=== PATIENT | female | born 2005 | race Caucasian/White ===

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

== ENCOUNTER → 2025-03-27 | Outpatient (CLI) | payer OTHER | LOC: LAB 15:54 → LAB SHORT 15:54 | DX: N39.0 Urinary tract infection, site not specified (principal) | CPT/HCPCS: 87077; 87086; 87186 ==

== ENCOUNTER → 2025-05-24 | Outpatient (CLI) | payer OTHER ==
[2025-05-24 16:27] LABS: BASOPHILS ABSOLUTE AUTO 0.01 K/mm3 (0.00-0.23); BASOPHILS PERCENT AUTO 0 % (0-2); EOSINOPHILS ABSOLUTE AUTO 0.10 K/mm3 (0.00-0.68); EOSINOPHILS PERCENT AUTO 2 % (0-6); Hematocrit 36.6 % (33.0-51.0); Hemoglobin 12.4 g/dL (11.5-16.0); IMMATURE GRAN ABSOLUTE AUTO 0.02 K/mm3 (0.00-0.10); IMMATURE GRAN PERCENT AUTO 0 % (0-1); LYMPHOCYTES ABSOLUTE AUTO 1.55 K/mm3 (0.84-5.20); LYMPHOCYTES PERCENT AUTO 26 % (21-46); MONOCYTES ABSOLUTE AUTO 0.39 K/mm3 (0.16-1.47); MONOCYTES PERCENT AUTO 7 % (4-13); Mean Corpuscular HGB Conc 33.9 g/dL (31.5-36.5); Mean Corpuscular Volume 93 fL (80-100); NEUTROPHILS ABSOLUTE AUTO 3.94 K/mm3 (1.96-9.15); NEUTROPHILS PERCENT AUTO 66 % (41-73); NRBC ABSOLUTE 0.00 K/mm3 (0.00-0.02); NRBC Auto 0.0 /100 WBC (0.0-0.2); Platelet Count 240 K/mm3 (150-400); RDW Coefficient Variation 11.9 % (11.7-14.2); RDW Standard Deviation 40.4 fL (35.1-46.3)
[2025-05-24 19:49] LABS: Alanine Aminotransfer (ALT/SGP 27 U/L (12-78); Albumin, Blood 3.6 g/dL (3.4-5.0); Albumin/Globulin Ratio 1.1 (0.8-1.8); Anion Gap 7 mmol/L (3-11); Aspartate Aminotrans (AST/SGOT 16 U/L (12-37); Bilirubin, Total 0.3 mg/dL (0.1-1.0); Blood Urea Nitrogen 7 mg/dL (8-24); CHOL/HDL RATIO 2.6; CO2, Blood 26 mmol/L (21-32); Calcium, Blood 8.7 mg/dL (8.5-10.1); Chloride, Blood 110 mmol/L (98-108); Cholesterol 109 mg/dL (50-200); Creatinine, Blood 0.75 mg/dL (0.40-1.00); Globulin, Blood 3.2 g/dL (2.2-4.0); Glucose, Blood 90 mg/dL (70-99); HDL Cholesterol 42 mg/dL (>39); LDL/HDL RATIO 1.3; Low Density Lipoprotein Chol 55 mg/dL (0-110); Potassium, Blood 4.0 mmol/L (3.5-5.5); Sodium, Blood 139 mmol/L (136-145); Thyroid Stimulating Hormone 1.680 uIU/mL (0.360-4.800); Total Protein, Blood 6.8 g/dL (6.4-8.2); Triglycerides 59 mg/dL (30-140); Very Low Density Lipoprot Chol 11 mg/dL (6-28)
== END ==
LOC: LAB SHORT 09:17 → LAB 09:17
PROVIDERS: Physician Assistant
DX: Z51.81 Encounter for therapeutic drug level monitoring (principal); Z79.899 Other long term (current) drug therapy
CPT/HCPCS: 80053; 80061; 82306; 83036; 84443; 85025

== ENCOUNTER 2025-08-02 22:31 | Emergency (ER) | payer OTHER ==
[~2025-08-02] VITALS: Ht 157.5 cm; Wt 81.7 kg
[2025-08-02 22:35] VITALS: BP 122/75
[2025-08-02 23:25] LABS: Influenza A, PCR NEGATIVE (NEGATIVE); Influenza B, PCR NEGATIVE (NEGATIVE); Resp Syncytial Virus, PCR NEGATIVE (NEGATIVE); SARS-Cov-2 (COVID-19) PCR, MMC NEGATIVE (NEGATIVE)
== END 2025-08-02 23:50 | disposition left against medical advice (07) ==
LOC: ER 22:31
PROVIDERS: Student in an Organized Health Care Education/Training Program
DX: Z53.21 Procedure and treatment not carried out due to patient leaving prior to being seen by health care provider (principal); R50.9 Fever, unspecified
CPT/HCPCS: 87637

== ENCOUNTER 2025-08-03 17:32 | Emergency (ER) | payer OTHER ==
[~2025-08-03] VITALS: Ht 157.5 cm; Wt 81.7 kg
[2025-08-03 17:41] VITALS: BP 121/85
[2025-08-03 18:56] LABS: Source, Urine Clean Catch
[2025-08-03 19:01] LABS: Bilirubin, Urine Neg (Neg); Color, Urine Yellow (P-Yellow); Glucose Qualitative, Urine Neg (Neg); Ketones, Urine 4+ (Neg); Leukocyte Esterase, Urine Neg (Neg); Protein, Urine 2+ (Neg); Specific Gravity, Urine 1.015 (1.003-1.022); Urobilinogen, Urine 1+ (Normal)
[2025-08-03 19:09] LABS: Red Blood Cells, Urine 0-2 /hpf (0-2); White Blood Cells, Urine 0-2 /hpf (0-5)
[2025-08-03] MEDS ORDERED: Dexamethasone Sod Phos 10 MG/ML 1ML VIAL PO ONE (20:15)
== END 2025-08-03 20:37 | disposition home or self-care (01) ==
LOC: ER 17:32
PROVIDERS: Student in an Organized Health Care Education/Training Program
DX: J02.9 Acute pharyngitis, unspecified (principal); K21.9 Gastro-esophageal reflux disease without esophagitis; Z79.899 Other long term (current) drug therapy
CPT/HCPCS: 81001; 87081; 87086; 87430; 99283; A9270; J1100

== ENCOUNTER → 2025-09-21 | Outpatient (CLI) | payer OTHER | LOC: LAB 13:25 | DX: Z87.09 Personal history of other diseases of the respiratory system (principal) ==

== ENCOUNTER 2025-10-10 19:06 | Emergency (ER) | payer OTHER ==
[~2025-10-10] VITALS: Ht 160 cm; Wt 81.7 kg
[2025-10-10 19:23] VITALS: BP 137/89
[2025-10-10] MEDS ORDERED: Ketorolac Tromethamine 15mg Vial IM ONE (19:30)
[2025-10-10] MEDS ORDERED: HYDROcodone 5-APAP 325 TAB PO ONE (19:30)
[2025-10-10] MEDS ORDERED: AMOCLA875 PO (19:32)
== END 2025-10-10 19:50 | disposition home or self-care (01) ==
LOC: ER 19:06
DX: K08.89 Other specified disorders of teeth and supporting structures (principal); K21.9 Gastro-esophageal reflux disease without esophagitis; Z79.899 Other long term (current) drug therapy
CPT/HCPCS: 96372; 99282-25; A9270; J1885